=== PATIENT | male | born 1950 | race Caucasian/White ===

== ENCOUNTER 2023-02-18 15:25 | Observation (INO) | payer MEDICARE, SELFPAY ==
[2023-02-18] VITALS (11 sets, daily range): BP systolic 152–189; BP diastolic 83–92; PULSE 91–106; RESP 16–18; TEMP 36.6–37.2; O2SAT 94–99; BMI 29.9
--- NOTE | 2023-02-18 15:26 | EKG12_ITS ---
Test Reason : Blood Pressure : / mmHG Vent. Rate : 098 BPM Atrial Rate : 098 BPM P-R Int : 166 ms QRS Dur : 090 ms QT Int : 368 ms P-R-T Axes : 054 -45 055 degrees QTc Int : 469 ms Normal sinus rhythm Left anterior fascicular block Minimal voltage criteria for LVH, may be normal variant ( R in aVL ) Abnormal ECG Confirmed by DEBBIE ALTAMIRANO, POLINA ([id number]), senior technical editor RADHA WATTS ([id number]) on 02/19/2023 9:34:16 AM Referred By: ADRIA Confirmed By:POLINA LEWIS MD
--- NOTE | 2023-02-18 15:26 | CT_ITS ---
STUDY: CT HEAD STROKE PROTOCOL W/O CONTRAST INJECTION REASON FOR EXAM: Male, 72 years old. Neuro deficit, acute, stroke suspected RADIATION DOSAGE (If Supplied By Facility): CTDIvol = ( 47.06 ) mGy, DLP = ( 872.68 ) mGycm TECHNIQUE: Transaxial CT imaging of the brain was performed without administration of intravenous contrast material. Individualized dose optimization techniques were used for this CT. COMPARISON: No relevant priors. FINDINGS: Normal soft tissue structures. Normal calvarium. There is mild cerebral atrophy with widening of the extra-axial spaces and ventricular dilatation. Normal white matter tracts of the cerebral hemispheres. Normal basal ganglia and thalami. Normal brainstem. Normal cerebellum. There is no intracranial hemorrhage. There are no findings of an acute ischemic infarction. Atherosclerotic calcification of the cavernous portions of the internal carotid arteries bilaterally. Opacification of the left maxillary sinus. ASPECT score: 10 CT/STROKE Brain/Head without Cont IMPRESSION: Chronic involutional changes of the brain. N.B. : The above Results were Read Back by Bishop Zelaya MD to [facility] and understanding confirmed on 02/18/2023 15:41:03 (ET). Electronically Signed: Bishop Zelaya MD at 15:42 EST ,
--- NOTE | 2023-02-18 15:27 | NURSING ---
1525 STROKE ALERT CALLED
--- NOTE | 2023-02-18 15:32 | NURSING ---
NO OLD EKGS
--- NOTE | 2023-02-18 15:35 | ED.VIS.STROK ---
HPI History of Present Illness Chief Complaint: Stroke Alert Detail of Chief Complaint: Abrupt onset of numbness right side of body Informant: patient and spouse/S.O. Onset/Context/Timing Onset: Hours Context: Sudden Onset Timing: Continuous Quality and Location: Positive for Right Face Paresthesia, Right Arm Parasthesia and Right Leg Parasthesia Onset: 1425 Current Severity: Mild Maximum Severity: Moderate Worsened by: Nothing Relieved by: Nothing Associated Symptoms Associated Symptoms: Negative for Headache, Nausea, Vomiting or Chest Pain Narrative Narrative: Is a 72-year-old male with history of hypertension, hypercholesterolemia who presents because of numbness right side of his face, extremities and body. Started 1 hour prior to presentation. He denies headache. He denies visual, ocular auditory symptoms. He denies trouble with speech or swallowing. He denies cardiac respiratory symptoms. He denies GI symptoms. He denies infectious symptoms. Prior similar symptoms: No Recent Illness/Hospitalization: No [facility] Medical History (Updated 02/18/23 @ 16:[address] Marino De La Cruz MD) Hyperlipemia Hypertension Home Medications atorvastatin 10 mg tablet 10 mg PO DAILY 02/18/23 [History Last Taken Unknown] propranolol 10 mg tablet 10 mg PO BID 02/18/23 [History Last Taken Unknown] verapamil 120 mg tablet 120 mg PO BID 02/18/23 [History Last Taken Unknown] Allergy/AdvReac Type Severity Reaction Status Date / Time clindamycin AdvReac Rash Verified 02/18/23 15:53 Surgical History (Updated 02/18/23 @ 15:41 by Jessica Fuller) H/O vasectomy Social History Smoking Status: Never smoker ROS [facility] ED Constitutional Constitutional ED: Denies chills, fever(s), subjective, sweats or weakness Eyes Eyes: Denies blurry vision, change in vision or diplopia ENT ENT ED: Denies ear pain, rhinorrhea or sore throat Cardiovascular Cardiovascular: Denies chest pain, palpitations, paroxysmal nocturnal dyspnea or racing heartbeat Respiratory/Chest Respiratory/Chest: Denies cough, dyspnea, dyspnea on exertion or paroxysmal nocturnal dyspnea Gastrointestinal Gastrointestinal: Denies abdominal pain, constipation, diarrhea, melena, nausea or vomiting Genitourinary Genitourinary ED: Denies dysuria, hematuria or urinary frequency Musculoskeletal Musculoskeletal: Denies arthralgias, back pain, myalgias or neck pain Integumentary Denies abscess, Abrasions or rash Neurologic Neurologic: Reports paresthesias; Denies headache(s) or weakness Psychiatric Psychiatric: Denies anxiety or depression Endocrine Endocrinology: Denies polydipsia, polyphagia or polyuria Hematologic/Lymphatic Hematologic/Lymphatic: Denies easy bleeding or easy bruising EXAM Physical Exam Const Vital Signs: 02/18/23 15:28 02/18/23 15:38 02/18/23 15:48 Temperature 97.9 F Temperature Source Temporal Pulse Rate 106 H Respiratory Rate 18 Blood Pressure 189/92 H 183/89 H Blood Pressure Mean 124 120 Pulse Ox 94 96 Oxygen Delivery Method Room Air Room Air 02/18/23 15:25 Temperature Temperature Source Pulse Rate 106 H Respiratory Rate Blood Pressure 189/92 H Blood Pressure Mean 124 Pulse Ox Oxygen Delivery Method Positive well nourished and well developed General Appearance ED: well developed and NAD HEENT Reports moist mucous membranes atraumatic Nose: other Other Details: Normal Eyes PERRL and EOMs intact bilaterally Eyes Narrative: There is no nystagmus. General Eye ED: Negative for pale conjunctiva or scleral icterus Neck no lymphadenopathy, supple and no JVD Chest Wall inspection of chest normal and palpation of chest normal Resp normal respiratory effort and clear to auscultation bilaterally Cardio no murmurs Rate: regular rate Rhythm: regular rhythm Heart Sounds: S1 normal and S2 normal GI normal to inspection, nondistended, normoactive bowel sounds, soft to palpation, non-tender, non-distended and no masses Back/Spine no CVA tenderness Extremity normal to inspection General Extremety ED: Negative for deformity or edema General Extremity: Negative for deformity or edema Neuro oriented x3, CN's II-XII intact bilaterally and No no sensory deficits noted [place] Coma Scale: document GCS findings Spontaneous Obeys Commands Oriented 15 Sensorium / Orientation: alert Speech: speech normal Motor Exam: strength 5/5 throughout Psych mental status grossly normal Skin no wounds General Skin Exam: Negative for jaundice Lesions: no lesions Rashes: no rashes NIHSS NIHSS Initial: 1a Level of Consciousness: 0 1b LOC Questions (Score 2 if aphasic/stupor): 0 1c LOC Commands (Only score 1st attempt): 0 2 Best Gaze (If aphasic, use reflexive mvmts.): 0 3 Visual: 0 4 Facial Palsy: 0 5 Motor Arm Right (UN = amputation/fusion): 0 5 Motor Arm Left: 0 6 Motor Leg Right: 0 6 Motor Leg Left: 0 7 Limb ataxia (Only + if out of proportion): 0 8 Sensory (Aphasia/stupor=0 or 1, coma=2): 1 9 Best Language: 0 10 Dysarthria (mute, coma=2, intubated=UN): 0 11 Extinction and Inattention (only scored if +): 0 Total Score: 1 MDM MDM MDM Narrative Medical decision making narrative: Dents with symptoms concern for stroke/TIA. Stroke team was called from triage. Stroke orders were placed. Will consult radiology regarding CT of the head without contrast and neurology at [facility]. Patient's symptoms have improved markedly over the past hour/since onset. NIH presently is 1. History & Record Review Discussion w/independent historian: Patient and Significant other Lab Data Attestation: I reviewed the patient's lab results. Labs: Laboratory Results - last 24 hr 02/18/23 15:40 WBC 9.3 RBC 4.61 Hgb 14.9 Hct 43.5 MCV 94.4 H MCH 32.3 H MCHC 34.3 RDW Std Deviation 42.7 RDW Coeff of Peggy 12.3 Plt Count 190 MPV 10.1 Immature Gran % (Auto) 1.000 H Neut % (Auto) 64.5 Lymph % (Auto) 16.8 L [place] % (Auto) 13.9 H Eos % (Auto) 2.5 Baso % (Auto) 1.3 H Absolute Neuts (auto) 6.0 Absolute Lymphs (auto) 1.55 Nucleated RBC % 0 PT 14.2 INR 1.1 APTT 28.5 Sodium 138 Potassium 3.9 Chloride 107 Carbon Dioxide 30.0 Anion Gap 1 L BUN 20 H Creatinine 1.22 Estim Creat Clear Calc 50.42 Est GFR (MDRD) Af Amer 75 Est GFR (MDRD) Non-Af 62 BUN/Creatinine Ratio 16.4 Glucose 132 H Calcium 9.0 Troponin I High Sens 58 Radiography Diagnostic Testing: Clinical Impression(s) from Imaging Studies Brain CT 02/18/23 15:26 IMPRESSION: Chronic involutional changes of the brain. N.B. : The above Results were Read Back by Bishop Zelaya MD to Marino De La Cruz and understanding confirmed on 02/18/2023 15:41:03 (ET). Electronically Signed: Bishop Zelaya MD at 15:42 EST , ADDENDUM: 02/18/23 1549 IMPRESSION: Chronic involutional changes of the brain. N.B. : The above Results were Read Back by Bishop Zelaya MD to Marino De La Cruz and understanding confirmed on 02/18/2023 15:41:03 (ET). Electronically Signed: Bishop Zelaya MD at 15:42 EST , EKG Initial EKG: Attestation: I personally reviewed and interpreted this EKG as follows: Interpretation: Sinus Rhythm (Rate is 98. There is a left anterior fascicular block. Question of LVH by voltage criteria. NC interval is 166 ms. Cures duration 90 ms. QT duration 368 ms.) Management Discussion w/another healthcare provider: Hospitalist (Dr. Mike Upton of the hospitalist was made aware and plan is PCU for further testing.), Wire Harness Design Engineer (Cultures from [facility] recommended CTA. He also recommended tPA. After lengthy discussion regarding risk benefits patient does not feel comfortable receiving tPA.) and Radiologist (Of call at 1540 by radiologist to inform me that the CT of the head without contrast was negative.) Treatment and Re-Evaluation Narrative: Asked if he did not receive tPA with this have any effect on him having a future stroke. He was informed that does not. He was informed of the risk benefits. Patient may have a small superior quadrantanopsia and has mild facial numbness on the right. Stroke Documentation Questions Stroke Team Activated: Yes Reviewed Inclusion/Exclusion criteria: Yes Was Patient considered for Endovascular Intervention?: No-CTA not indicated IV Thrombolytic Administered: No No contraindications from thrombolytic administration: Yes Risks, Benefits, Alternatives Discussed: No Discharge Plan Dx/Rx/DC Orders Clinical Impression: Right homonymous superior quadrantanopia, Paresthesia of right upper and lower extremity, History of hypertension Disposition Disposition: Acute Care [facility]
[2023-02-18 15:50] LABS: Absolute Lymphocyte Count 1.55 X10^3/uL (0.83-4.51); Basophil# 0.12 X10^3/uL; Basophil% 1.3 % (0-1); Eosinophil# 0.23 X10^3/uL; Eosinophils% 2.5 % (0-5); Hematocrit 43.5 % (40-54); Hemoglobin 14.9 g/dL (13.0-16.5); Lymphocyte # 1.55 X10^3/ul (0.83-4.51); Lymphocyte % 16.8 % (19-41); Mean Corp Hgb Conc 34.3 g/dL (32-36); Mean Corpuscular Hgb 32.3 pg (27.0-32.0); Mean Corpuscular Volume 94.4 fL (80-94); Mean Platelet Vol. 10.1 fl (6.2-12.0); Monocyte# 1.29 X10^3/uL; Monocyte% 13.9 % (0-10); NRBC Flagged by Analyzer 0 % (0-5); Neutrophil # 5.97 X10^3/uL (2.7-7.7); Neutrophil % 64.5 % (47-70); Platelet Count 190 K/mm3 (150-450); RBC Distribution Width CV 12.3 % (11.6-14.6); RBC Distribution Width SD 42.7 fl (35.1-43.9); Red Blood Count 4.61 M/mm3 (4.6-6.2); White Blood Count 9.3 K/mm3 (4.4-11.0)
--- NOTE | 2023-02-18 15:53 | CT_ITS ---
INDICATION: Right-sided numbness, EXAMINATION: CTA CAROTIDS AND BRAIN - CTA Head and Neck W/ Contrast Injection (and W/O Contrast Images if performed) TECHNIQUE: Routine CTA of the head and neck was performed with post processing of the angiographic images for volumetric reconstructions. In addition, images were obtained of the [place] of [place]. [place]ascet criteria using the distal ICAs for comparison were used for evaluation of stenoses. 3D reconstructions were reviewed. A radiation dose optimization technique was used for this scan. IV Contrast dosage and agent: 100 cc [id number] COMPARISON: Noncontrast head CT same date FINDINGS: --NECK: AORTIC ARCH AND BRANCHES: Vessel origins patent. RIGHT CCA: No occlusion, significant stenosis or dissection. RIGHT ICA: No occlusion, significant stenosis or dissection. LEFT CCA: No occlusion, significant stenosis or dissection. LEFT ICA: No occlusion, significant stenosis or dissection. RIGHT VERTEBRAL ARTERY: No occlusion, significant stenosis or dissection. LEFT VERTEBRAL ARTERY: No occlusion, significant stenosis or dissection. NECK SOFT TISSUES: Unremarkable. LUNG APICES: Clear. BONES: Degenerative changes. --HEAD: --Anterior circulation: ICAs: No significant stenosis at the intracranial/visualized segments. ACAs: No significant stenosis at the visualized segments. ACOM: Present. MCAs: No significant stenosis at the visualized segments. --Posterior circulation: PCOMs: Not seen. fall internship: No significant stenosis at the visualized segments. BASILAR ARTERY: No significant stenosis. VERTEBRAL ARTERIES: No significant stenosis at the intradural/visualized segments. No evidence of intracranial aneurysm or vascular malformation. CT/CTA Head AND Neck W/ Contrast IMPRESSION: Negative CTA Head and Neck. Electronically Signed: Kvng Grier MD at 17:05 EST ,
[2023-02-18 15:57] LABS: International Normalized Ratio 1.1; Prothrombin Time (Protime)PT. 14.2 SECONDS (11.7-14.9)
[2023-02-18 15:58] LABS: Partial Thromboplast Time 28.5 Seconds (24.1-36.2)
[2023-02-18 16:07] LABS: Anion Gap 1 (5-15); BUN 20 mg/dL (7-18); BUN/Creat Ratio 16.4 RATIO (10-20); Chloride 107 mmol/L (98-107); Creatinine, Serum 1.22 mg/dL (0.70-1.30); EST Glomerular Filtration Rate 62 mL/min (>60); Est Glom Filt Rate - Afr Amer 75 mL/min (>60); Estimated Creatinine Clearance 50.42 ml/min; Glucose 132 mg/dL (74-106); Potassium 3.9 mmol/L (3.5-5.1); Sodium Level 138 mmol/L (136-145); Troponin-I HS 58 pg/mL (3.0-78.0)
--- NOTE | 2023-02-18 16:10 | RAD_ITS ---
INDICATION: Neuro deficit, acute, stroke suspected EXAMINATION/TECHNIQUE: X-RAY - portable upright AP chest x-ray COMPARISON: None. FINDINGS: LINES/DEVICES: None. LUNGS: No consolidation, edema or effusion. No pneumothorax. MEDIASTINUM AND CARDIOVASCULAR STRUCTURES: Cardiac silhouette not enlarged. Central airways and mediastinal contour are unremarkable. BONES AND SOFT TISSUES: Unremarkable. RAD/Chest 1 View IMPRESSION: No radiographic evidence of acute cardiopulmonary disease. Electronically Signed: Kvng Grier MD at 17:06 EST ,
--- NOTE | 2023-02-18 16:26 | PCM.HP.STD ---
Documented by User: Dr. Justice Maynard DO 02/18/23 22:10 HPI - General General Date of Admission: 02/18/23 Date of Service: 02/18/23 Chief Complaint: Right-sided paresthesias concerning for stroke HPI Narrative KIMBERLEE VALDOVINOS, is a 72 M who presented to [facility] ED on 02/18/2023 with acute onset of right-sided numbness/tingling concerning for stroke. Patient seen at bedside in the ED, and friend present. Patient sitting comfortably bed, conversing normally, no acute distress. Patient states that about an hour prior to presentation to the ED, he had acute onset of numbness/tingling in his right leg, right arm and the right side of his face. States the symptoms have improved fairly significantly over the last hour. He denies any vision changes during that time. Patient reports a history of TIA?like symptoms about 6 months ago, symptoms were not this severe at that time. Has been taking his home statin and antihypertensive medications as prescribed. States that his blood pressure typically runs in the 120s to 130s consistently. Patient currently denies any chest pain, shortness of breath, fevers or chills, abdominal pain or discomfort. Denies any lightheadedness or dizziness. No other acute concerns this time. [facility] Medical History (Updated 02/18/23 @ 16:[address] Marino De La Cruz MD) Hyperlipemia Hypertension Home Medications atorvastatin 10 mg tablet 10 mg PO DAILY 02/18/23 [History Last Taken Unknown] propranolol 10 mg tablet 10 mg PO BID 02/18/23 [History Last Taken Unknown] verapamil 120 mg tablet 120 mg PO BID 02/18/23 [History Last Taken Unknown] Allergy/AdvReac Type Severity Reaction Status Date / Time clindamycin AdvReac Rash Verified 02/18/23 15:53 Surgical History (Updated 02/18/23 @ 15:41 by Jessica Fuller) H/O vasectomy Social History Smoking Status: Never smoker ROS Constitutional Constitutional: Denies change in weight, chills, fatigue, fever(s) or weakness Eyes Eyes: Denies change in vision Cardiovascular Cardiovascular: Denies chest pain Respiratory/Chest Respiratory/Chest: Denies cough Gastrointestinal Gastrointestinal: Denies abdominal pain Genitourinary Genitourinary: Denies dysuria Musculoskeletal Musculoskeletal: Denies arthralgias or back pain Neurologic Neurologic: Reports numbness, paresthesias and tingling; Denies abnormal gait, abnormal speech, confusion, dizziness, focal weakness or headache(s) Vital Signs Vital Signs Vital Signs: 02/18/23 15:28 02/18/23 15:38 02/18/23 15:48 Temperature 97.9 F Temperature Source Temporal Pulse Rate 106 H Respiratory Rate 18 Blood Pressure 189/92 H 183/89 H Blood Pressure Mean 124 120 Pulse Ox 94 96 Oxygen Delivery Method Room Air Room Air 02/18/23 15:25 Temperature Temperature Source Pulse Rate 106 H Respiratory Rate Blood Pressure 189/92 H Blood Pressure Mean 124 Pulse Ox Oxygen Delivery Method Weight Weight: 86.8 kg Body Mass Index (BMI) 29.9 Physical Exam Const alert, oriented x3, no apparent distress, average body habitus, healthy appearing and well nourished Constitutional Narrative: Pleasant elderly female, sitting comfortably in bed, conversing normally, no acute distress. General Appearance: cooperative and comfortable HEENT normocephalic, head/scalp atraumatic, hearing grossly normal bilaterally, nasal mucous membranes and turbinates normal and moist oral mucous membranes Eyes PERRL, EOMs intact bilaterally and conjunctivae normal Neck full ROM, no lymphadenopathy and supple Lymph Lymphatic: no lymphadenopathy noted Chest inspection of chest normal Resp normal respiratory effort, normal air movement, no use of accessory muscles and clear to auscultation bilaterally Cardio regular rate, regular rhythm, no murmurs and peripheral pulses 2+ throughout GI normal to inspection, nondistended, normoactive bowel sounds, soft to palpation, non-tender and non-distended Back/Spine normal ROM Extremity normal to inspection, full ROM and no pedal edema Skin no rashes or lesions noted Neuro oriented x3, moves all extremities and no focal motor deficits Speech: speech normal Psych mental status grossly normal Results Lab / Micro Data 02/18/23 15:40 02/18/23 15:40 Labs: Laboratory Results - last 24 hr 02/18/23 15:40: WBC 9.3, RBC 4.61, Hgb 14.9, Hct 43.5, MCV 94.4 H, MCH 32.3 H, MCHC 34.3, RDW Std Deviation 42.7, RDW Coeff of Peggy 12.3, Plt Count 190, MPV 10.1, Immature Gran % (Auto) 1.000 H, Neut % (Auto) 64.5, Lymph % (Auto) 16.8 L, [place] % (Auto) 13.9 H, Eos % (Auto) 2.5, Baso % (Auto) 1.3 H, Absolute Neuts (auto) 6.0, Absolute Lymphs (auto) 1.55, Nucleated RBC % 0, PT 14.2, INR 1.1, APTT 28.5, Sodium 138, Potassium 3.9, Chloride 107, Carbon Dioxide 30.0, Anion Gap 1 L, BUN 20 H, Creatinine 1.22, Estim Creat Clear Calc 50.42, Est GFR (MDRD) Af Amer 75, Est GFR (MDRD) Non-Af 62, BUN/Creatinine Ratio 16.4, Glucose 132 H, Calcium 9.0, Troponin I High Sens 58 Imagaing Radiology Impression Brain CT 02/18/23 15:26 IMPRESSION: Chronic involutional changes of the brain. N.B. : The above Results were Read Back by Bishop Zelaya MD to Marino De La Cruz and understanding confirmed on 02/18/2023 15:41:03 (ET). Electronically Signed: Bishop Zelaya MD at 15:42 EST , ADDENDUM: 02/18/23 1549 IMPRESSION: Chronic involutional changes of the brain. N.B. : The above Results were Read Back by Bishop Zelaya MD to Marino De La Cruz and understanding confirmed on 02/18/2023 15:41:03 (ET). Electronically Signed: Bishop Zelaya MD at 15:42 EST , Assessment & Plan Assessment/Plan (1) Paresthesia of right upper and lower extremity: PLAN: Plan Patient is a 72-year-old male who presented to [facility] ED on 02/18/23 with right-sided numbness and tingling concerning for stroke. 1. Right-sided numbness/tingling, suspected TIA Presented with acute onset numbness/tingling of right side of face, right arm and right leg. Started 1 hour prior to presentation. Reported previous history of TIA several months ago, symptoms were less severe than this episode. Denies any vision changes. NIHSS score of 1 in the ED, as patient states his symptoms markedly improved since symptom onset. Initial CT head negative. Evaluated by teleneurology, initial recommendation was for tPA but patient declined. CTA head/neck negative. ? Admit under observation status to PCU. Teleneurology consulted. Stroke protocol ordered. MRI brain without contrast ordered. Echo ordered. Lipid panel, A1c, TSH ordered. PT/OT/case management consulted. Will increase home atorvastatin to 40 mg daily, initiate aspirin 81 mg daily. Monitor telemetry. Okay for permissive hypertension with systolic BP greater than 140 for now. Chronic medical conditions: ? Hyperlipidemia: Increased home atorvastatin as noted above. ? Hypertension: Continue home verapamil, holding home propranolol for permissive hypertension, can likely restart on discharge. DVT prophylaxis: SCDs CODE STATUS: Full code, verified Expected disposition: Home, 1 to 2 days Total clinical time spent by myself addressing the patient's medical issues, reviewing all the data, and collaborating with patient's care team: 55 minutes. Charges/Coding Visit Charges Inpatient E&M: 40856 Init Hosp L2 Documented by User: Dr. Dick Rios MD 02/18/23 21:48 HPI - General General Date of Admission: 02/18/23 [facility] Medical History (Updated 02/18/23 @ 16:[address] Marino De La Cruz MD) Hyperlipemia Hypertension Home Medications atorvastatin 10 mg tablet 10 mg PO DAILY 02/18/23 [History Last Taken Unknown] propranolol 10 mg tablet 10 mg PO BID 02/18/23 [History Last Taken Unknown] verapamil 120 mg tablet 120 mg PO BID 02/18/23 [History Last Taken Unknown] Allergy/AdvReac Type Severity Reaction Status Date / Time clindamycin AdvReac Rash Verified 02/18/23 15:53 Surgical History (Updated 02/18/23 @ 15:41 by Jessica Fuller) H/O vasectomy Social History Smoking Status: Never smoker Results Lab / Micro Data 02/18/23 15:40 02/18/23 15:40 Assessment & Plan Assessment/Plan (1) Paresthesia of right upper and lower extremity:
--- NOTE | 2023-02-18 16:54 | MRI_ITS ---
STUDY: MRI BRAIN WITHOUT CONTRAST REASON FOR EXAM: Male, 72 years old. TIA TECHNIQUE: Standardized multiplanar fat and water weighted pulse sequences were obtained. COMPARISON: CT head 02/18/2023. BRAIN AND EXTRA-AXIAL SPACES: No intracranial mass, mass effect, or midline shift. No hemorrhage, territorial infarct or acute ischemia. Limited number of T2 signal hyperintense lesions in the periventricular white matter consistent with microvascular ischemia. Ventricles are normal in size for the patient''s age. Basal cisterns are unremarkable. SELLA: Pituitary gland is normal in height. AUDITORY SYSTEM: Unremarkable. BONES/JOINTS: Unremarkable. SINUSES: Moderate mucosal thickening left maxillary sinus. MASTOID AIR CELLS: Unremarkable as visualized. Clear. ORBITS: Unremarkable as visualized. VASCULATURE: Normal flow voids in the major intracranial circulation. MRI/Brain without Contrast IMPRESSION: No acute findings. Mild microvascular ischemic changes. Chronic sinusitis. Electronically Signed: Shaista Tran MD at 18:51 EST Reading Location ID and State: [id number] / Tel , Service support ,
--- NOTE | 2023-02-18 16:58 | NURSING ---
PCU OBS MOSTELLER TIA
[2023-02-18 17:33] LABS: Thyroid Stim Hormone (TSH) 2.35 uIU/mL (0.358-3.74)
--- NOTE | 2023-02-18 18:07 | ECHOCS_ITS ---
Reason For Study: TIA/CVA Procedure This was a 2D Doppler, Color Flow transthoracic echocardiogram. The study was technically difficult. Contrast injection was performed. Exam performed portable in patient room. Left Ventricle Normal LV size. Moderate concentric left ventricular hypertrophy. Left ventricular systolic function is normal. The estimated ejection fraction is 60 %. Stage 1 diastolic dysfunction. No regional wall motion abnormalities noted. Right Ventricle Normal RV size. Normal systolic function. Atria Normal left atrium. Normal right atrium. Bubble contrast study negative for right to left interatrial shunt. Tricuspid Valve Normal tricuspid valve. Mild (1+) tricuspid valve insufficiency. Pulmonary artery systolic pressure is 36 mmHg. Pulmonic Valve Normal pulmonic valve. Great Vessels Normal aortic root. Pericardium/Pleural No pericardial effusion. Medication Diluted definity 1ml given slow IV push to enhance endocardial definition. Performed a rapid injection of agitated mix of 9 cc saline and 1cc air to assess for atrial septal defect. MMode/2D Measurements & Calculations LVIDd: 2.8 cm IVSd: 1.4 cm Ao root diam: 3.7 cm LVIDs: 1.6 cm LVPWd: 1.4 cm FS: 43.5 % LAV(MOD-bp): 44.2 ml LVAd ap4: 30.9 cm2 SV(MOD-sp4): 51.8 ml LAV(MOD-bp) Indexed: 22.3 ml/m2 LVLd ap4: 8.4 cm LAV(MOD-sp2): 34.7 ml EDV(MOD-sp4): 92.0 ml LAV(MOD-sp4): 48.5 ml EDV(sp4-el): 96.5 ml LVAs ap4: 19.0 cm2 LVLs ap4: 7.4 cm ESV(MOD-sp4): 40.2 ml ESV(sp4-el): 41.2 ml EF(MOD-sp4): 56.3 % EF(sp4-el): 57.3 % SV(sp4-el): 55.3 ml LA dimension(2D): 2.9 cm LA A4 area: 19.1 cm2 RA A4 area: 17.1 cm2 TAPSE: 3.0 cm Time Measurements MV dec time: 0.08 sec Doppler Measurements & Calculations MV E max isidro: 78.8 cm/sec Lat Peak E' Isidro: 10.0 cm/sec Med Peak E' Isidro: 7.6 cm/sec MV A max isidro: 80.5 cm/sec E/E' lat: 7.9 E/E' med: 10.3 MV E/A: 0.98 MV V2 max: 88.3 cm/sec Ao V2 max: 128.0 cm/sec MV max P.1 mmHg MV dec slope: 1196 cm/sec2 Ao max P.6 mmHg MV V2 mean: 56.1 cm/sec Ao V2 mean: 101.5 cm/sec MV mean P.4 mmHg Ao mean P.5 mmHg MV V2 VTI: 16.7 cm Ao V2 VTI: 26.4 cm AV (velocity ratio): 0.77 LV V1 max: 111.5 cm/sec PA V2 max: 86.2 cm/sec TR max isidro: 282.1 cm/sec LV V1 max P.0 mmHg PA V2 mean: 68.9 cm/sec TR max P.8 mmHg LV V1 mean P.9 mmHg LV V1 mean: 79.8 cm/sec LV V1 VTI: 20.2 cm ECHO/Echo Complete W/ Contrast Interpretation Summary Normal LV size. Left ventricular systolic function is normal. Moderate concentric left ventricular hypertrophy. The estimated ejection fraction is 60 %. Stage 1 diastolic dysfunction. Pulmonary artery systolic pressure is 36 mmHg. Contrast injection was performed. Ordering Physician: Justice Maynard Referring Physician: Selvin Kyle M.D. Performed By: Mala Myrick RCS
[2023-02-18 20:02] LABS: Cholesterol 154 mg/dL (200); High Density Lipoprotein 45 mg/dL; Triglycerides 154 mg/dL; Very Low Density Lipoprotein 31 mg/dL (5-40)
[2023-02-18] MEDS: Verapamil 120 MG Tablet PO (21:32)
[2023-02-18] MEDS: Atorvastatin Calcium 40 MG Tablet PO (21:32)
[2023-02-19 00:51] VITALS: BMI 29.9
[2023-02-19 00:58] VITALS: BMI 29.9
[2023-02-19 01:30] VITALS: BP 138/79; PULSE 84; RESP 18; TEMP 37.2; O2SAT 96
[2023-02-19 05:30] VITALS: BP 137/78; PULSE 87; RESP 18; TEMP 36.8; O2SAT 95
[2023-02-19 06:27] LABS: Hematocrit 43.4 % (40-54); Hemoglobin 14.6 g/dL (13.0-16.5); Mean Corp Hgb Conc 33.6 g/dL (32-36); Mean Corpuscular Hgb 32.4 pg (27.0-32.0); Mean Corpuscular Volume 96.4 fL (80-94); Mean Platelet Vol. 10.8 fl (6.2-12.0); Platelet Count 187 K/mm3 (150-450); RBC Distribution Width CV 12.2 % (11.6-14.6); RBC Distribution Width SD 43.5 fl (35.1-43.9); White Blood Count 8.6 K/mm3 (4.4-11.0)
[2023-02-19 07:36] LABS: Anion Gap 7 (5-15); BUN 16 mg/dL (7-18); BUN/Creat Ratio 13.8 RATIO (10-20); Calcium,Total 9.1 mg/dL (8.5-10.1); Chloride 109 mmol/L (98-107); Creatinine, Serum 1.16 mg/dL (0.70-1.30); EST Glomerular Filtration Rate 66 mL/min (>60); Est Glom Filt Rate - Afr Amer 79 mL/min (>60); Estimated Creatinine Clearance 53.03 ml/min; Glucose 99 mg/dL (74-106); Sodium Level 139 mmol/L (136-145)
[2023-02-19 09:02] LABS: Bedside Glucose 140 mg/dL (74-106)
[2023-02-19] MEDS: Aspirin 81 MG TAB.CHEW PO (09:58)
[2023-02-19] MEDS: Verapamil 120 MG Tablet PO (09:58)
[2023-02-19 10:00] VITALS: BP 135/68; PULSE 98; RESP 18; TEMP 36.8; O2SAT 96
--- NOTE | 2023-02-19 10:22 | CASEMGMT ---
Social Work As per initial admitting clarity developer, pt's Monica Costello is his healthcare POA, but is not able to bring in the documents. NATHEN Fraga
--- NOTE | 2023-02-19 12:48 | CON.PCM.NE_ITS ---
Assessment and Plan: Neuro Assessment/Plan KIMBERLEE VALDOVINOS is a 72 M with a past medical history of HTN and DLD p/w being evaluated by Teleneurology for transient right sided weakness and numbness along with right superior quadrant vision loss. History is obtained from patient. He reported that symptoms lasted for few hours. He does not take ASA at home but he does take hypolipidemic medicine at home. CT head- no acute intracr anial process. CTA- no LVO. MRI brain - no acute stroke. TTE- EF-60%. Today, he reports feeling back to normal with NIHSS-0. Diagnosis: TIA Plan: ASA 325mg daily along with statin. Follow up A1c. Event monitor on discharge. Control of vascular risk factors- BP<140/90,LDL<70 and A1c<6.5. Follow up with neurology as an outpatient. I personally attended this patient and spent a total time of 45 minutes evaluating this patient including clinical assessment, review of chart, medical history imaging, and determining appropriate treatment and workup. HPI Consult Data Date of Consult: 02/19/23 HPI Narrative HPI Narrative: 72 M with a past medical history of HTN and DLD p/w being evaluated by Teleneurology for transient right sided weakness and numbness along with right superior quadrant vision loss. History is obtained from patient. He reported that symptoms lasted for few hours. He does not take ASA at home but he does take hypolipidemic medicine at home. CT head- no acute intracranial process. CTA- no LVO. MRI brain - no acute stroke. TTE- EF-60%. Today, he reports feeling back to normal with NIHSS-0. [facility] Medical History Hyperlipemia Hypertension Home Medications atorvastatin 10 mg tablet 10 mg PO DAILY 02/18/23 [History Last Taken Unknown] propranolol 10 mg tablet 10 mg PO BID 02/18/23 [History Last Taken Unknown] verapamil 120 mg tablet 120 mg PO BID 02/18/23 [History Last Taken Unknown] Allergy/AdvReac Type Severity Reaction Status Date / Time clindamycin AdvReac Rash Verified 02/18/23 15:53 Surgical History H/O vasectomy Social History Smoking Status: Never smoker Vital Signs Vital Signs Vital Signs: 02/18/23 15:28 02/18/23 15:38 02/18/23 15:48 Temperature 97.9 F Temperature Source Temporal Pulse Rate 106 H Respiratory Rate 18 Respiratory Effort Respiratory Depth Respiratory Pattern Blood Pressure 189/92 H 183/89 H Blood Pressure Mean 124 120 Blood Pressure Source Pulse Ox 94 96 Oxygen Delivery Method Room Air Room Air 02/18/23 15:25 02/18/23 16:26 02/18/23 16:26 Temperature Temperature Source Pulse Rate 106 H 100 100 Respiratory Rate 16 16 Respiratory Effort Respiratory Depth Respiratory Pattern Blood Pressure 189/92 H 174/87 H 174/87 H Blood Pressure Mean 124 116 116 Blood Pressure Source Pulse Ox 97 96 Oxygen Delivery Method Room Air Room Air 02/18/23 16:35 02/18/23 17:00 02/18/23 17:00 Temperature Temperature Source Pulse Rate 95 91 91 Respiratory Rate 16 16 Respiratory Effort Respiratory Depth Respiratory Pattern Blood Pressure 174/87 H 158/84 H Blood Pressure Mean 116 108 Blood Pressure Source Pulse Ox 96 98 Oxygen Delivery Method Room Air 02/18/23 18:31 02/18/23 18:40 02/18/23 20:00 Temperature 98.2 F 98.6 F Temperature Source Oral Oral Pulse Rate 95 94 Respiratory Rate 17 16 Respiratory Effort Respiratory Depth Respiratory Pattern Blood Pressure 152/83 H 152/83 H Blood Pressure Mean 106 106 Blood Pressure Source Monitor Monitor Pulse Ox 99 99 95 Oxygen Delivery Method Room Air Room Air Room Air 02/18/23 20:00 02/18/23 21:34 02/19/23 01:30 Temperature 98.9 F 99 F Temperature Source Oral Temporal Pulse Rate 102 H 84 Respiratory Rate 18 18 Respiratory Effort Normal Respiratory Depth Normal Respiratory Pattern Normal Blood Pressure 178/84 H 138/79 H Blood Pressure Mean 115 98 Blood Pressure Source Pulse Ox 95 97 96 Oxygen Delivery Method Room Air Room Air Room Air 02/19/23 05:30 02/19/23 10:00 02/19/23 10:13 Temperature 98.3 F 98.2 F Temperature Source Temporal Oral Pulse Rate 87 98 Respiratory Rate 18 18 Respiratory Effort Respiratory Depth Respiratory Pattern Blood Pressure 137/78 H 135/68 H Blood Pressure Mean 97 90 Blood Pressure Source Monitor Pulse Ox 95 96 Oxygen Delivery Method Room Air Room Air Room Air 02/19/23 10:00 Temperature Temperature Source Pulse Rate Respiratory Rate Respiratory Effort Normal Respiratory Depth Normal Respiratory Pattern Normal Blood Pressure Blood Pressure Mean Blood Pressure Source Pulse Ox Oxygen Delivery Method Weight Weight: 86.8 kg Body Mass Index (BMI) 29.9 EEG Results Procedure Details EEG Procedure Details: KIMBERLEE VALDOVINOS is a 72 year old M with a past medical history of , who presents for evaluation of Electroencephalogram on DATE at TIME NIHSS NIHSS Nursing Documentation NIHSS Nursing Documentation: NIHSS: Ischemic Stroke/TIA Start: 02/18/23 18:07 Text: For PCU Patients: NIH and Neuro Check every 4 Status: Active hours and PRN Freq: [id number] Protocol: Activity Type Activity Date Activity User E-sign Co-sign Detail Recorded Client Recorded Date Recorded By Document 02/19/23 10:00 DE Desktop 02/19/23 10:06 DE 02/19/23 10:00 NIH Stroke Scale [NIHSS] A score of 0 is normal or asymptomatic . Total possible score is 42. Inpatient: RN or Physician to activate a stroke alert for onset of new stroke symptoms or with NIHSS increase >/= 3 points. Following change in neurological status, NIHSS will be performed per physician order or more frequently PRN. -1a. Level of Consciousness Alert; keenly responsive -1b. LOC Questions Answers BOTH questions correctly. -1c. LOC Commands Performs both tasks correctly . -2. Best Gaze Normal -3. Visual No visual loss -4. Facial Palsy Normal symmetrical movements -5a. Left Arm No drift; arm holds 90 (or 45 ) degrees for full 10 seconds -5b. Right Arm No drift; arm holds 90 (or 45 ) degrees for full 10 seconds -6a. Left Leg No drift; leg holds 30-degree position for full 5 seconds -6b. Right Leg No drift; leg holds 30-degree position for full 5 seconds -7. Limb Ataxia Absent -8. Sensory Normal; no sensory loss -9. Best Language No aphasia; normal -10. Dysarthria Normal -11. Extinction and Inattention No abnormality -Total 0 Query Text:A score of 0 is normal or asymptomatic. Total possible score is 42 . ED: Notify Physician for NIHSS increase by > / = 3 points. Inpatient: RN or Physician to activate a stroke alert for NIHSS increase of > / = 3 points. Coma Scale [Assess] -Eye Opening Spontaneous -Motor Obeys Commands -Verbal Oriented [Total] -Coma Scale Total 15 NIHSS: Ischemic Stroke/TIA Start: 02/18/23 18:07 Text: For ICU Patients: NIH sroke scale at Status: Complete presentation and every 2 hours or with change in RN caregiver Freq: Q4H Protocol: Activity Type Activity Date Activity User E-sign Co-sign Detail Recorded Client Recorded Date Recorded By Document 02/18/23 21:23 LF Desktop 02/18/23 21:30 [facility] 02/18/23 21:23 NIH Stroke Scale [NIHSS] A score of 0 is normal or asymptomatic . Total possible score is 42. Inpatient: RN or Physician to activate a stroke alert for onset of new stroke symptoms or with NIHSS increase >/= 3 points. Following change in neurological status, NIHSS will be performed per physician order or more frequently PRN. -1a. Level of Consciousness Alert; keenly responsive -1b. LOC Questions Answers BOTH questions correctly. -1c. LOC Commands Performs both tasks correctly . -2. Best Gaze Normal -3. Visual No visual loss -4. Facial Palsy Normal symmetrical movements -5a. Left Arm No drift; arm holds 90 (or 45 ) degrees for full 10 seconds -5b. Right Arm No drift; arm holds 90 (or 45 ) degrees for full 10 seconds -6a. Left Leg No drift; leg holds 30-degree position for full 5 seconds -6b. Right Leg No drift; leg holds 30-degree position for full 5 seconds -7. Limb Ataxia Absent -8. Sensory Normal; no sensory loss -9. Best Language No aphasia; normal -10. Dysarthria Normal -11. Extinction and Inattention No abnormality -Total 0 Query Text:A score of 0 is normal or asymptomatic. Total possible score is 42 . ED: Notify Physician for NIHSS increase by > / = 3 points. Inpatient: RN or Physician to activate a stroke alert for NIHSS increase of > / = 3 points. NIHSS 1a. Level of Consciousness: Alert; keenly responsive 1b. LOC Questions: Answers BOTH questions correctly. 1c. LOC Commands: Performs both tasks correctly. 2. Best Gaze: Normal 3. Visual: No visual loss 4. Facial Palsy: Normal symmetrical movements 5a. Left Arm: No drift; arm holds 90 (or 45) degrees for full 10 seconds 5b. Right Arm: No drift; arm holds 90 (or 45) degrees for full 10 seconds 6a. Left Leg: No drift; leg holds 30-degree position for full 5 seconds 6b. Right Leg: No drift; leg holds 30-degree position for full 5 seconds 7. Limb Ataxia: Absent 8. Sensory: Normal; no sensory loss 9. Best Language: No aphasia; normal 10. Dysarthria: Normal 11. Extinction and Inattention: No abnormality Total: 0 Physical Exam Narrative Mental status/Cognition: alert; oriented to month and age; good attention; no apparent neglect Speech/language: No dysarthria; comprehension intact; object naming intact; repetition intact Cranial nerves: CN II No vision loss CN III,IV, PERRL. EOMI. CN V Intact facial sensation CN VII Face symmetric CN VIII Hearing grossly intact to voice CN IX & X Soft palate elevates symmetrically in the midline, no dysarthria CN XI Shoulder shrug with full strength CN XII Tongue protrudes midline Motor: 5/5 in all extremities. Sensation: Normal sensation in all extremities Coordination/Complex Motor: - [id number] intact bilaterally without dysmetria Lab / Micro Data 02/19/23 05:20 02/19/23 05:20 Labs: Laboratory Results - last 24 hr 02/18/23 15:23: POC Glucose 140 H 02/18/23 15:40: WBC 9.3, RBC 4.61, Hgb 14.9, Hct 43.5, MCV 94.4 H, MCH 32.3 H, MCHC 34.3, RDW Std Deviation 42.7, RDW Coeff of Peggy 12.3, Plt Count 190, MPV 10.1, Immature Gran % (Auto) 1.000 H, Neut % (Auto) 64.5, Lymph % (Auto) 16.8 L, Rhea % (Auto) 13.9 H, Eos % (Auto) 2.5, Baso % (Auto) 1.3 H, Absolute Neuts (auto) 6.0, Absolute Lymphs (auto) 1.55, Nucleated RBC % 0, PT 14.2, INR 1.1, APTT 28.5, Sodium 138, Potassium 3.9, Chloride 107, Carbon Dioxide 30.0, Anion Gap 1 L, BUN 20 H, Creatinine 1.22, Estim Creat Clear Calc 50.42, Est GFR (MDRD) Af Amer 75, Est GFR (MDRD) Non-Af 62, BUN/Creatinine Ratio 16.4, Glucose 132 H, Hemoglobin A1c 6.0 H, Calcium 9.0, Troponin I High Sens 58, Triglycerides 154, Cholesterol 154, LDL Cholesterol 78, VLDL Cholesterol 31, HDL Cholesterol 45, TSH 2.35 02/19/23 05:20: WBC 8.6, RBC 4.50 L, Hgb 14.6, Hct 43.4, MCV 96.4 H, MCH 32.4 H, MCHC 33.6, RDW Std Deviation 43.5, RDW Coeff of Peggy 12.2, Plt Count 187, MPV 10.8, Sodium 139, Potassium 4.0, Chloride 109 H, Carbon Dioxide 23.0, Anion Gap 7, BUN 16, Creatinine 1.16, Estim Creat Clear Calc 53.03, Est GFR (MDRD) Af Amer 79, Est GFR (MDRD) Non-Af 66, BUN/Creatinine Ratio 13.8, Glucose 99, Calcium 9.1 Imagaing Radiology Impression Brain CT 02/18/23 15:26 IMPRESSION: Chronic involutional changes of the brain. N.B. : The above Results were Read Back by Bishop Zelaya MD to Marino De La Cruz and understanding confirmed on 02/18/2023 15:41:03 (ET). Electronically Signed: Bishop Zelaya MD at 15:42 EST , ADDENDUM: 02/18/23 1549 IMPRESSION: Chronic involutional changes of the brain. N.B. : The above Results were Read Back by Bishop Zelaya MD to Marino De La Cruz and understanding confirmed on 02/18/2023 15:41:03 (ET). Electronically Signed: Bishop Zelaya MD at 15:42 EST , Head/Neck CTA 02/18/23 15:53 IMPRESSION: Negative CTA Head and Neck. Electronically Signed: Kvng Grier MD at 17:05 EST , Chest X-Ray 02/18/23 16:10 IMPRESSION: No radiographic evidence of acute cardiopulmonary disease. Electronically Signed: Kvng Grier MD at 17:06 EST , Brain MRI 02/18/23 16:54 IMPRESSION: No acute findings. Mild microvascular ischemic changes. Chronic sinusitis. Electronically Signed: Shaista Tran MD at 18:51 EST , Echocardiogram 02/18/23 18:07 Interpretation Summary Normal LV size. Left ventricular systolic function is normal. Moderate concentric left ventricular hypertrophy. The estimated ejection fraction is 60 %. Stage 1 diastolic dysfunction. Pulmonary artery systolic pressure is 36 mmHg. Contrast injection was performed. Ordering Physician: Justice Maynard Referring Physician: Selvin Kyle M.D. Performed By: Mala Myrick RCS Active Medications Active Medications Active Medications: Current Medications Generic Name Dose Route Start Last Admin Trade Name Freq PRN Reason Stop Dose Admin Acetaminophen 650 mg 02/18/23 18:07 Acetaminophen 325 Mg Tablet PO Q6H PRN PRN Pain 1-10 Or Fever>100.7 Aspirin 81 mg 02/19/23 08:00 02/19/23 09:58 Aspirin 81 Mg Tab.Chew PO 81 mg BREAKFAST MARCUS Administration Atorvastatin Calcium 40 mg 02/18/23 22:00 02/18/23 21:32 Atorvastatin Calcium 40 Mg Tablet PO 40 mg QHS MARCUS Administration Hydralazine HCl 5 mg 02/18/23 18:07 Hydralazine 20 Mg/Ml Vial IV Q30M PRN to maintain BP goals Sodium Chloride 250 mls @ 15 mls/hr 02/18/23 18:23 IV .[id number] PRN Additional IVPB Infusion Sodium Chloride 250 mls @ 15 mls/hr 02/18/23 18:23 IV .[id number] PRN Saline Flush Labetalol HCl 20 mg 02/18/23 15:26 Labetalol (Prefilled) 20 Mg/4 Ml IV X1 PRN Blood Pressure Labetalol HCl 10 - 20 mg 02/18/23 18:07 Labetalol (Prefilled) 20 Mg/4 Ml IV Q10M PRN PRN to Maintain BP Goals Melatonin 3 mg 02/18/23 18:07 Melatonin 3 Mg Tablet PO QHS PRN PRN INSOMNIA Ondansetron HCl 4 mg 02/18/23 18:07 Ondansetron 4 Mg/2 Ml Vial IV Q8H PRN PRN NAUSEA/VOMITING Sodium Chloride 10 - 40 ml 02/18/23 18:23 0.9% Saline Lock 10 Ml Syringe IV UD PRN SALINE FLUSH Verapamil HCl 120 mg 02/18/23 22:00 02/19/23 09:58 Verapamil 120 Mg Tablet PO 120 mg BID MARCUS Administration Protocol
[2023-02-19 14:00] VITALS: BP 139/66; PULSE 80; RESP 16; TEMP 36.8; O2SAT 93
--- NOTE | 2023-02-19 14:32 | PCM.DC.SUM ---
Providers Date of Admission: 02/18/23 Date of Discharge: 02/19/23 Primary Care Physician: Dr. Selvin Kyle MD Consultations 02/18/23 18:07 Consult: Tele-Neurology Routine Consulting Provider: [facility] Reason for Consult: Acute Ischemic Stroke/TIA EMERGENT Consult: No MD Notified: Yes Date Notified: 02/18/23 Time Notified: 16:50 Method of Notification: Answering Service Nursing Unit Staff Notify [facility] of Tele-Neurology Consult: Yes Reason For Visit: TIA Diagnosis Discharge Diagnosis (1) Paresthesia of right upper and lower extremity: Status: Acute Code(s): R20.2 - Paresthesia of skin Medications at Discharge Home Medications propranolol 10 mg tablet 10 mg PO BID blood pressure 02/18/23 verapamil 120 mg tablet 120 mg PO BID blood pressure 02/18/23 aspirin 325 mg capsule 325 mg PO DAILY #30 caps 02/19/23 atorvastatin 40 mg tablet 40 mg PO QHS #30 tabs 02/19/23 Hospital Course Operations None Procedures 2-D Echocardiogram, EKG and - (T brain/CTA head and neck/MRI brain) Summary of Care Provided Minutes Spent on Discharge: 38 Hospital Course: Mr. Costello is a 72-year-old white male who presented emergency department at [facility] yesterday afternoon 02/18/2023 complaining of right-sided paresthesias and was concerned that he may be having a stroke. The patient reported that about an hour prior to presentation to the emergency department he had acute onset of tingling and numbness in his right leg, right arm, and right side of face. Upon presentation the symptoms had improved significantly but still had some mild residual changes. The patient denied any changes in his vision at that time. He reported of history of TIA like symptoms about 6 months prior to presentation that were not as severe and he did not seek attention. He has been compliant with his home antihypertensives and statin. He does not take an aspirin at home. Patient indicates his systolic blood pressure typically runs between [address] of the brain was unremarkable. CTA of the head and neck was unremarkable for any stenosis or significant blockages/thrombosis. He was evaluated by [facility] stroke neurologist in the emergency department and his NIH at that time was 2 and he had a quadrantanopsia. Recommendation for stroke workup was made and he was admitted to PCU under observation status for further evaluation. His hemoglobin A1c was performed and found to be 6.0. A lipid panel was performed and demonstrated total cholesterol of 154 with an LDL of 78, HDL 45, and triglyceride level of 154. This LDL was on 10 mg of atorvastatin. His TSH was within normal limits. His blood pressure was initially elevated however when restarted on his home medications his systolic pressures appear to be in the 130 range without his propranolol which was restarted at discharge. I did recommend he follow-up with his primary care physician to ensure blood pressure control is goal will be 130/80 or less. Echocardiogram was performed and demonstrated an EF of 60% with stage I diastolic dysfunction and pulmonary systolic pressure of 36 mmHg. MRI was performed and was negative for any acute infarct and NIH is resolved and were 0 since he arrived to the telemetry floor. We started him initially on a baby aspirin. He was reevaluated by [facility] neurology and they too felt his diagnosis was consistent with TIA. They recommended ongoing aspirin at 325 mg a day along with continued statin therapy. With the patient's LDL being elevated I did increase his statin from 10 mg nightly to 40 mg nightly and recommended that they start aspirin 325 mg daily. As noted his hemoglobin A1c was less than 6.5 so he just needs ongoing outpatient follow-up on a yearly basis. An order for an outpatient event monitor was placed to assess for any cardiac arrhythmia that could be causing his strokelike symptoms. I have recommended follow-up with neurology and information for local neurologist was given to the patient with instruction to follow-up within the next month and to call Wednesday to schedule an outpatient appointment. Patient was able to be discharged home in stable condition on 02/19/2023. I have asked that he follow-up with his local primary care physician within the next 2 weeks. Discharge diagnoses: TIA HTN HPL Insulin resistance Physical Exam Const alert, oriented x3 and no apparent distress Constitutional Narrative: Overweight, older, white male, sitting up in bed, family at bedside, patient appears comfortable and nontoxic General Appearance: cooperative, comfortable, well kempt and well developed Orientation / Consciousness: awake, oriented to person, oriented to place and oriented to time Exam Limitations: no limitations Nutritional Appearance: overweight HEENT normocephalic, head/scalp atraumatic and moist oral mucous membranes HEENT Narrative: Mild hearing loss, Mallampati 3, no thrush Eyes PERRL, EOMs intact bilaterally and conjunctivae normal Neck no lymphadenopathy and supple Resp normal respiratory effort, no retractions, no use of accessory muscles and clear to auscultation bilaterally Auscultation: Negative for rales, rhonchi or wheezes Cardio regular rate, regular rhythm, S1 normal heart sound, S2 normal heart sound, no murmurs, no rub, no gallops and no clicks GI normal to inspection, nondistended, normoactive bowel sounds, soft to palpation and non-tender Extremity no clubbing, cyanosis or edema Extremity Narrative: 2+ pedal pulses Skin no rashes or lesions noted, no wounds, skin turgor normal and no jaundice Neuro oriented x3, CN's II-XII intact bilaterally, moves all extremities, no focal motor deficits and no sensory deficits noted Speech: speech normal Psych affect normal Psych Narrative: Very pleasant, interacts appropriately, mood is stable Weight / BMI Weight Weight: 86.8 kg Body Mass Index (BMI) 29.9 ABG / Lab / Microbiology Data 02/19/23 05:20 02/19/23 05:20 Laboratory: Laboratory Results - last 24 hr 02/18/23 15:23: POC Glucose 140 H 02/18/23 15:40: WBC 9.3, RBC 4.61, Hgb 14.9, Hct 43.5, MCV 94.4 H, MCH 32.3 H, MCHC 34.3, RDW Std Deviation 42.7, RDW Coeff of Peggy 12.3, Plt Count 190, MPV 10.1, Immature Gran % (Auto) 1.000 H, Neut % (Auto) 64.5, Lymph % (Auto) 16.8 L, Menard % (Auto) 13.9 H, Eos % (Auto) 2.5, Baso % (Auto) 1.3 H, Absolute Neuts (auto) 6.0, Absolute Lymphs (auto) 1.55, Nucleated RBC % 0, PT 14.2, INR 1.1, APTT 28.5, Sodium 138, Potassium 3.9, Chloride 107, Carbon Dioxide 30.0, Anion Gap 1 L, BUN 20 H, Creatinine 1.22, Estim Creat Clear Calc 50.42, Est GFR (MDRD) Af Amer 75, Est GFR (MDRD) Non-Af 62, BUN/Creatinine Ratio 16.4, Glucose 132 H, Hemoglobin A1c 6.0 H, Calcium 9.0, Troponin I High Sens 58, Triglycerides 154, Cholesterol 154, LDL Cholesterol 78, VLDL Cholesterol 31, HDL Cholesterol 45, TSH 2.35 02/19/23 05:20: WBC 8.6, RBC 4.50 L, Hgb 14.6, Hct 43.4, MCV 96.4 H, MCH 32.4 H, MCHC 33.6, RDW Std Deviation 43.5, RDW Coeff of Peggy 12.2, Plt Count 187, MPV 10.8, Sodium 139, Potassium 4.0, Chloride 109 H, Carbon Dioxide 23.0, Anion Gap 7, BUN 16, Creatinine 1.16, Estim Creat Clear Calc 53.03, Est GFR (MDRD) Af Amer 79, Est GFR (MDRD) Non-Af 66, BUN/Creatinine Ratio 13.8, Glucose 99, Calcium 9.1 Radiography Diagnostic Testing: Radiology Impression Brain CT 02/18/23 15:26 IMPRESSION: Chronic involutional changes of the brain. N.B. : The above Results were Read Back by [facility] and understanding confirmed on 02/18/2023 15:41:03 (ET). Electronically Signed: Bishop Zelaya MD at 15:42 EST , ADDENDUM: 02/18/23 1549 IMPRESSION: Chronic involutional changes of the brain. N.B. : The above Results were Read Back by Bishop Zelaya MD to [facility] and understanding confirmed on 02/18/2023 15:41:03 (ET). Electronically Signed: Bishop Zelaya MD at 15:42 EST , Head/Neck CTA 02/18/23 15:53 IMPRESSION: Negative CTA Head and Neck. Electronically Signed: Kvng Grier MD at 17:05 EST , Chest X-Ray 02/18/23 16:10 IMPRESSION: No radiographic evidence of acute cardiopulmonary disease. Electronically Signed: Kvng Grier MD at 17:06 EST , Brain MRI 02/18/23 16:54 IMPRESSION: No acute findings. Mild microvascular ischemic changes. Chronic sinusitis. Electronically Signed: Shaista Tran MD at 18:51 EST , Echocardiogram 02/18/23 18:07 Interpretation Summary Normal LV size. Left ventricular systolic function is normal. Moderate concentric left ventricular hypertrophy. The estimated ejection fraction is 60 %. Stage 1 diastolic dysfunction. Pulmonary artery systolic pressure is 36 mmHg. Contrast injection was performed. Ordering Physician: Justice Maynard Referring Physician: Selvin Kyle M.D. Performed By: Mala Myrick RCS D/C Instructions Discharge Diet: Low fat / Low cholesterol Discharge Activity: Return to Normal Activity Return to work on: 02/22/23 Meaningful Use Info Meaningful Use Diagnoses (Choose all that apply): None applicable Discharge Plan Admission Admit Date/Time: 02/18/23 16:48 Primary Reason for Your Visit: TIA Attending Provider: Yahaira Luciano Primary Care Provider: Selvin Kyle Consulting Providers: Jacob Lei; Duncan Hammond; Maricruz Grijalva; Yessica Ba; Chiquis Bowers; Dick Rios; Lizzette Ho; Ed Hollis; Solitario Jimenez; Zahida Cedeño; [place]; Niki Giang; [place]; Irineo Christensen; Adam Wellington; Agnes Dumas; Didier Landrum; Mariangel Luciano; Chin Lee; Justice Maynard Instructions Patient Instructions: TIA Dc Discharge Orders/Prescriptions Prescriptions: New atorvastatin 40 mg Tablet 40 mg PO QHS Qty: 30 2RF aspirin 325 mg capsule 325 mg PO DAILY Qty: 30 0RF Continued propranolol 10 mg tablet 10 mg PO BID verapamil 120 mg tablet 120 mg PO BID Discontinued atorvastatin 10 mg tablet 10 mg PO DAILY Other Ambulatory Orders: 30 Day Event Recorder Preventi (Urgent) Timeframe: 1 Day Facility: [facility] - Location: Cardiovascular Services Ordered By: Dr. Yahaira Luciano Referrals / Follow Up: Noah Parra MD [Non-Staff -Ordering Privileges] - Within 1 Month (Call Wednesday to set up appt) Selvin Kyle MD [Primary Care Provider] - Within 2 Weeks Disposition Disposition (needs filled in before D/C Order can be placed): Home, Self Care Charges/Coding Visit Charges Inpatient E&M: 94661 Disch Hosp >30min
[2023-02-19 15:10] VITALS: BMI 29.9
== END 2023-02-19 14:33 | disposition home or self-care (01) ==
LOC: ED 16:24 → PCU 17:12
PROVIDERS: Admitting Provider Hospitalist; Emergency Provider Emergency Medicine; PCP Internal Medicine; Visit Provider Internal Medicine
DX: R20.2 Paresthesia of skin (principal); I10 Essential (primary) hypertension; E78.00 Pure hypercholesterolemia, unspecified; Z79.899 Other long term (current) drug therapy; I44.4 Left anterior fascicular block; R94.31 Abnormal electrocardiogram [ECG] [EKG]; I36.1 Nonrheumatic tricuspid (valve) insufficiency; R53.1 Weakness; R20.0 Anesthesia of skin
CPT/HCPCS: 36415; 70450; 70496; 70498; 70551; 71045; 80048; 80061; 82962; 83036; 84443; 84484; 85025; 85027; 85610; 85730; 93005; 93306; 94668; 94762; 99221; 99252; 99285; Q9957; Q9967; A4216; C8929; G0378; G0463